=== PATIENT | male | born 1955 | race Caucasian/White ===

== ENCOUNTER 2017-05-20 12:25 | Day surgery (SDC) | payer BC ==
[~2017-05-20] VITALS: Ht 177.8 cm; Wt 94.0 kg
[2017-05-20] MEDS ORDERED: Aspir 8181 MG PO (13:00)
[2017-05-20] MEDS ORDERED: NAPR220 PO (13:01)
== END 2017-05-20 14:14 | disposition home or self-care (01) ==
LOC: ORSCSDS 12:25
PROVIDERS: Surgery
PROC: 0DBH8ZX Excision of Cecum, Via Natural or Artificial Opening Endoscopic, Diagnostic (ICD-10-PCS; principal; 2017-05-20 13:30)
DX: Z12.11 Encounter for screening for malignant neoplasm of colon (principal); D12.0 Benign neoplasm of cecum; Z87.891 Personal history of nicotine dependence; Z79.82 Long term (current) use of aspirin; Z79.899 Other long term (current) drug therapy
CPT/HCPCS: 88305; J0330; J1980; J2405; J7120

== ENCOUNTER → 2019-10-08 | Outpatient (CLI) | payer BC ==
[~2019-10-08] MED LIST: Aspir 8181 MG PO; NAPR220 PO
== END | disposition home or self-care (01) ==
LOC: LAB SHORT 12:16 → LAB 12:16
DX: D48.5 Neoplasm of uncertain behavior of skin (principal)
CPT/HCPCS: 88305; 88312

== ENCOUNTER 2020-05-10 12:39 | Emergency (ER) | payer BC ==
[~2020-05-10] VITALS: Ht 177.8 cm; Wt 95.2 kg
[2020-05-10] MEDS ORDERED: DECADRON6 M2 PO (16:47)
[2020-05-10] MEDS ORDERED: Zithromax250 MG PO (16:47)
== END 2020-05-10 17:35 | disposition home or self-care (01) ==
LOC: ER 12:39
DX: U07.1 COVID-19 (principal); J12.82 Pneumonia due to coronavirus disease 2019; Z79.82 Long term (current) use of aspirin
CPT/HCPCS: 71045; 99283-25; A9270; J1100

== ENCOUNTER 2020-11-07 17:26 | Observation (INO) | payer BC ==
[~2020-11-07] VITALS: Ht 177.8 cm; Wt 98.9 kg
[~2020-11-07 17:26] MED LIST changes: +DECADRON6 M2 PO; +Zithromax250 MG PO
[2020-11-07 19:17] LABS: BASOPHILS ABSOLUTE AUTO 0.03 K/mm3 (0.00-0.23); BASOPHILS PERCENT AUTO 1 % (0-2); EOSINOPHILS ABSOLUTE AUTO 0.08 K/mm3 (0.00-0.68); EOSINOPHILS PERCENT AUTO 2 % (0-6); Hematocrit 40.3 % (37.0-53.0); Hemoglobin 13.8 g/dL (13.5-17.5); IMMATURE GRAN ABSOLUTE AUTO 0.01 K/mm3 (0.00-0.10); IMMATURE GRAN PERCENT AUTO 0 % (0-1); LYMPHOCYTES ABSOLUTE AUTO 1.98 K/mm3 (0.84-5.20); LYMPHOCYTES PERCENT AUTO 37 % (21-46); MONOCYTES ABSOLUTE AUTO 0.45 K/mm3 (0.16-1.47); MONOCYTES PERCENT AUTO 9 % (4-13); Mean Corpuscular HGB Conc 34.2 g/dL (31.5-36.5); Mean Corpuscular Volume 94 fL (80-100); Mean Platelet Volume 9.9 fL (9.1-12.4); NEUTROPHILS ABSOLUTE AUTO 2.77 K/mm3 (1.96-9.15); NEUTROPHILS PERCENT AUTO 52 % (41-73); Platelet Count 180 K/mm3 (150-400); RDW Coefficient Variation 13.6 % (11.7-14.2); RDW Standard Deviation 47.2 fL (35.1-46.3); Red Blood Cell Count 4.31 M/mm3 (4.30-5.90); White Blood Cell Count 5.32 K/mm3 (4.00-11.30)
[2020-11-07 19:49] LABS: Alanine Aminotransfer (ALT/SGP 27 U/L (12-78); Albumin, Blood 3.6 g/dL (3.4-5.0); Albumin/Globulin Ratio 1.2 (0.8-1.8); Alk Phos 51 U/L (50-136); Anion Gap 3 mmol/L (6-16); Aspartate Aminotrans (AST/SGOT 24 U/L (12-37); Bilirubin, Total 0.5 mg/dL (0.1-1.0); Blood Urea Nitrogen 12 mg/dL (8-24); Bun/Creatinine Ratio 14.4 (12.0-20.0); CO2, Blood 28 mmol/L (21-32); Calcium, Blood 8.9 mg/dL (8.5-10.1); Chloride, Blood 108 mmol/L (98-108); Creatinine, Blood 0.84 mg/dL (0.60-1.20); Globulin, Blood 3.1 g/dL (2.2-4.0); Glomerular Filtration Rate >60 (60-); Glucose, Blood 94 mg/dL (70-99); Potassium, Blood 3.5 mmol/L (3.5-5.5); Sodium, Blood 139 mmol/L (136-145); Total Protein, Blood 6.7 g/dL (6.4-8.2); Troponin I <0.015 ng/mL (0.000-0.040)
[2020-11-08 12:15] LABS: Source, Urine Clean Catch
[2020-11-08 12:24] LABS: Appearance, Urine Clear (Clear); Bilirubin, Urine Neg (Neg); Blood, Urine Neg (Neg); Color, Urine Yellow (P-Yellow); Glucose Qualitative, Urine Neg (Neg); Ketones, Urine Neg (Neg); Leukocyte Esterase, Urine Neg (Neg); Nitrite, Urine Neg (Neg); Protein, Urine Neg (Neg); Urobilinogen, Urine NORM (Normal)
[2020-11-08] MEDS ORDERED: ASPI325 PO (12:38)
[2020-11-08] MEDS ORDERED: LIPITOR80 MG PO (12:39)
[2020-11-08] MEDS ORDERED: LISI20 PO (12:40)
[2020-11-08 13:10] LABS: CHOL/HDL RATIO 4.2; Cholesterol 237 mg/dL (50-200); HDL Cholesterol 57 mg/dL (>39); LDL/HDL RATIO 2.6; Low Density Lipoprotein Chol 148 mg/dL (0-110); Triglycerides 162 mg/dL (30-160); Very Low Density Lipoprot Chol 32 mg/dL (6-32)
--- NOTE | 2020-11-08 19:41 | NUR ---
PT UA SENT OFF, PT/OT ASSESSED PT, ECHO OF HEART AND ECHO OF CAROTIDS PERFORMED, ALONG WITH FOLLOW-UP HEAD CT, DISCHARGE ORDER PLACED, PT IV OUT AT 1350, TELEMETRY OFF AT 1355, DISCHARGE TEACHING PERFORMED AT BEDSIDE WITH PT'S PRESENT, PT DENIES ADDITIONAL CONCERNS AT THIS TIME, PT ASSISTED TO CHANGE INTO STREET CLOTHES, PT TRANSFERRED TO PRIVATE VEHICLE BY RN WITH PERSONAL EFFECTS VIA WHEELCHAIR AND NO MONITORING, OXYGEN THERAPY, OR IV INFUSIONS; PT'S DENIES ADDITIONAL CONCERNS AT THIS TIME
== END 2020-11-08 14:45 | disposition home or self-care (01) ==
LOC: ER 17:26 → PCU 11-08 00:31
PROVIDERS: Family Medicine; Physician Assistant; ADMIT Internal Medicine
DX: I16.0 Hypertensive urgency (principal); G81.94 Hemiplegia, unspecified affecting left nondominant side; Z86.16 Personal history of COVID-19; Z79.82 Long term (current) use of aspirin
CPT/HCPCS: 36415; 70450; 80053; 80061; 81003; 84484; 85025; 93005; 93010; 93306; 93880; 97116; 97161; A9270; J1650

== ENCOUNTER 2023-04-23 08:32 | Day surgery (SDC) | payer BC ==
[~2023-04-23] VITALS: Ht 177.8 cm; Wt 97.6 kg
[~2023-04-23 08:32] MED LIST changes: +ASPI325 PO; +LIPITOR80 MG PO; +LISI20 PO
[2023-04-23] MEDS ORDERED: CLOP75 PO (09:19)
[2023-04-23 11:05] VITALS: BP 119/70
== END 2023-04-23 11:00 | disposition home or self-care (01) ==
LOC: ORSCSDS 08:32
PROVIDERS: Surgery
PROC: 0DJD8ZZ Inspection of Lower Intestinal Tract, Via Natural or Artificial Opening Endoscopic (ICD-10-PCS; principal; 2023-04-23 09:45)
DX: Z12.11 Encounter for screening for malignant neoplasm of colon (principal); Z86.010 Personal history of colon polyps; E78.5 Hyperlipidemia, unspecified; Z87.891 Personal history of nicotine dependence; Z79.82 Long term (current) use of aspirin; Z79.899 Other long term (current) drug therapy
CPT/HCPCS: J2704; J7120